=== PATIENT | female | born 1970 | race Caucasian/White ===

== ENCOUNTER → 2017-08-12 12:38 | Outpatient (CLI) | payer BC | END | disposition home or self-care (01) | LOC: D.CT 12:38 | DX: R10.9 Unspecified abdominal pain (principal); R93.422 Abnormal radiologic findings on diagnostic imaging of left kidney ==

== ENCOUNTER → 2017-09-23 12:23 | Outpatient (CLI) | payer BC | END | disposition home or self-care (01) | LOC: D.NM 12:23 | DX: R10.11 Right upper quadrant pain (principal); K21.9 Gastro-esophageal reflux disease without esophagitis; R11.0 Nausea ==